=== PATIENT | female | born 1980 | race Caucasian/White ===

== ENCOUNTER 2016-05-30 21:00 | Emergency (ER) | payer OTHER ==
[~2016-05-30] VITALS: Ht 154.9 cm; Wt 49.9 kg
[2016-05-30 21:57] VITALS: BP 128/87
[2016-05-30 22:41] LABS: KETONES,URINE NEGATIVE (NEGATIVE); LEUKOCYTE ESTERASE ,URINE NEGATIVE (NEGATIVE); PH,URINE 6.5 (5.0-8.0)
[2016-05-30 22:47] LABS: ADD UA MICROSCOPIC YES
[2016-05-30 22:52] LABS: ADD URINE CULTURE NO; RBC,URINE TOO NUMEROUS TO COUN /HPF (0-2); WBC,URINE NONE SEEN /HPF (0-3)
[2016-05-31] MEDS ORDERED: AZITHROMYCIN 250 MG TABLET PO ONE
[2016-05-31] MEDS ORDERED: CEFTRIAXONE 500 MG VIAL IM ONE
== END 2016-05-31 00:39 | disposition home or self-care (01) ==
LOC: ER 21:04
DX: Z11.3 Encounter for screening for infections with a predominantly sexual mode of transmission (principal)
CPT/HCPCS: 81001; 87081; 87210; 87491; 87591; 99284; A4606; Z7610; 81000-TC

== ENCOUNTER 2017-10-16 11:30 | Emergency (ER) | payer OTHER ==
[~2017-10-16] VITALS: Ht 154.9 cm; Wt 45.4 kg
--- NOTE | 2017-10-16 11:35 | NUR ---
Presents to ER c/o uti symptoms x 3 weeks ago. a/o x 4, breathing even and unlabored. no sob, nad, vitals stable. safety and comfort measures in place. awaiting md orders.
--- NOTE | 2017-10-16 11:40 | NUR ---
urine obtained and sent to lab.
[2017-10-16 12:00] LABS: APPEARANCE,URINE Clear (CLEAR); BILIRUBIN,URINE Negative (NEGATIVE); BLOOD, URINE Negative Ery/uL (NEGATIVE); COLOR,URINE Yellow (YELLOW); KETONES,URINE Negative (NEGATIVE); LEUKOCYTE ESTERASE ,URINE Negative (NEGATIVE); NITRITE, URINE Negative (NEGATIVE); PROTEIN,URINE Negative (NEGATIVE); UGLUCOSE Negative (NEGATIVE); UROBILINOGEN,URINE 0.2 EU/dL (0.2)
[2017-10-16 13:48] VITALS: BP 116/89
== END 2017-10-16 13:50 | disposition home or self-care (01) ==
LOC: ER 11:31
DX: R35.0 Frequency of micturition (principal); Z11.3 Encounter for screening for infections with a predominantly sexual mode of transmission
CPT/HCPCS: 81001; 84703; 87086; 87210; 87491; 87591; 99284; A4606; A6402; Z7610; 81000-TC